=== PATIENT | female | born 1970 | race Caucasian/White ===

== ENCOUNTER 2018-05-22 16:51 | Emergency (ER) | payer OTHER ==
[~2018-05-22] VITALS: Ht 160 cm; Wt 82.6 kg
[2018-05-22] MEDS ORDERED: TOPROL XL50 M1 (17:03)
[2018-05-22] MEDS ORDERED: COZAAR100 MG (17:03)
== END 2018-05-22 21:10 | disposition home or self-care (01) ==
LOC: ER 16:51
DX: K52.89 Other specified noninfective gastroenteritis and colitis (principal)